=== PATIENT | male | born 1995 | race Caucasian/White ===

== ENCOUNTER 2017-05-14 01:05 | Emergency (ER) | payer SELFPAY ==
[2017-05-14] MEDS ORDERED: NS 0.9% 1000 ML* 1,000 ML IV ONE (01:40)
--- NOTE | 2017-05-14 02:22 | ED ---
Gerald Medellin Thomas, scribed for Fernando White MD on 05/14/17 at 0128 . Syncope/Near Syncope - HPI Summary HPI Summary: The pt is a 22 y/o M presenting to the ED c/o syncopal episodes x2 that began today at 00:15. Prior to the episodes, he was sitting on a stool and he felt woozy and then fell out of the stool. He had LOC for approximately 15 seconds each episode. During a syncopal episode, he reports striking his head. Pt c/o dizziness that is worsened when changing positions. He additionally c/o some SOB , nausea, and vomiting. Pt denies TURNER. He attests to prior syncopal episodes with the last episode occurring a couple months ago. He has never had these episodes evaluated. In the ED, he vomited and feels a lot better.He says that he did not drink any liquids today. PMHx: previously healthy. PSHx: none. SHx: smoking, weekly alcohol use. FHx: negative for syncopal episodes. He is accompanied by a friend. He does not have a PCP. - History Of Current Complaint Chief Complaint: EDSyncope Hx Obtained From: Patient Onset/Duration: Sudden Onset, Lasting Hours - onset today at 00:15, Still Present Timing: Constant Context: Witnessed Associated Head Trauma: Yes Aggravating Factor(s): Nothing Alleviating Factor(s): Nothing Associated Signs And Symptoms: Dizzy - worsened with changing positions, Head Trauma (Recent), Shortness Of Breath, Vomiting, Other - POS: nausea, LOC Related History: Similar Episode/Dx as - prior syncopal episodes - Allergies/Home Medications Allergies/Adverse Reactions: Allergies Allergy/AdvReac Type Severity Reaction Status Date / Time No Known Allergies Allergy Verified 05/14/17 01:17 PMH/Surg Hx/FS Hx/Imm Hx Previously Healthy: Yes Cardiovascular History: Denies: Hx Congestive Heart Failure Respiratory History: Denies: Hx Chronic Obstructive Pulmonary Disease (COPD) - Surgical History Surgery Procedure, Year, and Place: None Infectious Disease History: No Infectious Disease History: Denies: Traveled Outside the [place] in Last 30 Days - Family History Known Family History: Positive: Other - NEG: syncopal episodes - Social History Alcohol Use: Weekly Hx Tobacco Use: Yes Smoking Status (MU): Current Every Day Smoker Review of Systems Negative: Fever Positive: Vomiting, Nausea Positive: Other - POS: striking head during syncopal episode Neurological: Other - POS: dizziness (worsened with changing positions) Positive: Syncope - x2. Negative: Headache All Other Systems Reviewed And Are Negative: Yes Physical Exam Triage Information Reviewed: Yes Vital Signs On Initial Exam: Initial Vitals Temp Pulse Resp BP Pulse Ox 97.8 F 77 16 107/52 97 05/14/17 01:14 05/14/17 01:14 05/14/17 01:14 05/14/17 01:14 05/14/17 01:14 Vital Signs Reviewed: Yes Appearance: Positive: Well-Appearing, No Pain Distress Skin: Positive: Warm Head/Face: Positive: Normal Head/Face Inspection Eyes: Positive: EOMI, JESSY ENT: Positive: Hearing grossly normal Neck: Positive: Supple Respiratory/Lung Sounds: Positive: Clear to Auscultation, Breath Sounds Present Cardiovascular: Positive: RRR Abdomen Description: Positive: Nontender, Soft Bowel Sounds: Positive: Present Musculoskeletal: Positive: Strength/ROM Intact Neurological: Positive: Sensory/Motor Intact, Alert, Oriented to Person Place, Time, Normal Gait Psychiatric: Positive: Affect/Mood Appropriate Diagnostics - Vital Signs Vital Signs Temp Pulse Resp BP Pulse Ox 05/14/17 01:14 97.8 F 77 16 107/52 97 - Laboratory Result Diagrams: 05/14/17 02:17 05/14/17 02:17 Lab Statement: Any lab studies that have been ordered have been reviewed, and results considered in the medical decision making process. - Radiology CXR Xray Interpretation: No Acute Changes - No acute disease Radiology Interpretation Completed By: ED Physician - CT CT Brain CT Interpretation: No Acute Changes - No acute pathology CT Interpretation Completed By: Radiologist - EKG 01:27 Cardiac Rate: NL - 82 BPM Re-Evaluation - Re-Evaluation First Eval Change: Improved - results d/w pt Course/Dx Assessment/Plan: The pt is a 22 y/o M presenting to the ED c/o syncopal episodes x2 that began today at 00:15. Prior to the episodes, he was sitting on a stool and he felt woozy and then fell out of the stool. He had LOC for approximately 15 seconds each episode. During a syncopal episode, he reports striking his head. Pt c/o dizziness that is worsened when changing positions. He additionally c/o some SOB, nausea, and vomiting. Pt denies TURNER. He attests to prior syncopal episodes with the last episode occurring a couple months ago. He has never had these episodes evaluated. In the ED, he vomited and feels a lot better.He says that he did not drink any liquids today. PMHx: previously healthy. PSHx: none. SHx: smoking, weekly alcohol use. FHx: negative for syncopal episodes. He is accompanied by a friend. He does not have a PCP. In the ED course the patient was given IV fluids. Blood work shows Glucose 124, lactic acid 2.4, serum alcohol 51. EKG reveals NSR, nml EKG. CT Brain reveals no acute pathology. ED physician has reviewed this radiology report and agrees. Patient is diagnosed with syncope. Patient will be discharged home with follow up by PCP. Patient is agreeable to this plan. - Diagnoses Provider Diagnoses: Syncope Discharge - Discharge Plan Condition: Stable Disposition: HOME Patient Education Materials: Syncope (ED) [place] [facility] [place]] Additional Instructions: Use [place] [facility] [place] to find a primary care doctor and make and appointment. The documentation as recorded by the Gerald heredia Thomas accurately reflects the service I personally performed and the decisions made by me, Fernando White MD.
[2017-05-14 02:33] LABS: Hematocrit 42 % (42-52); Hemoglobin 14.2 g/dl (14.0-18.0); Mean Corpuscular HGB Conc 34 g/dl (31-36); Mean Corpuscular Hemoglobin 32 pg (27-31); Mean Corpuscular Volume 93 fL (80-94); Mean Platelet Volume 8 um3 (7.4-10.4); Red Blood Count 4.46 10^6/ul (4.0-5.4); Red Cell Distribution Width 14 % (10.5-15); White Blood Count 10.4 10^3/ul (3.5-10.8)
[2017-05-14 02:46] LABS: Albumin 4.6 g/dL (3.2-5.2); BUN/Creatinine Ratio 20.4 (8-20); EGFR African American 102.5 (>60); EGFR Non-African American 79.7 (>60); Globulin 2.2 g/dL (2-4); Magnesium 2.2 mg/dL (1.9-2.7); Total Bilirubin 0.3 mg/dL (0.2-1.0); Total Protein 6.8 g/dL (6.4-8.9)
[2017-05-14 03:09] LABS: TSH (Thyroid Stimulating Horm) 1.19 mcIU/mL (0.34-5.60)
[2017-05-14 04:42] VITALS: BP 107/48
--- NOTE | 2017-05-14 08:21 | RAD ---
INDICATION: Syncopal episodes. Shortness of breath. COMPARISON: No relevant prior exams available on the [facility] [place] for comparison. TECHNIQUE: Dual energy PA and routine lateral views of the chest were obtained. REPORT: Clear lungs and pleural spaces. Negative for pneumothorax. The heart, pulmonary vasculature, and mediastinal contours are unremarkable. Unremarkable osseous structures and soft tissue contours. IMPRESSION: No evidence for acute intrathoracic disease.
--- NOTE | 2017-05-14 08:23 | RAD ---
Indication: Syncopal episodes with fall. Comparison: No relevant prior exams available [place] [facility] [place]. Technique: Noncontrast CT vertex of skull through foramen magnum. Report: The sulci, ventricles, and basal cisterns are normal for age. Contreras matter white matter differentiation is preserved without evidence for edema. No intra or extra axial hemorrhage, mass, or fluid collection detected. Unremarkable visualized orbital contents. Unremarkable calvarium and skull base. Unremarkable scalp. The visualized paranasal sinuses and mastoid air spaces are grossly clear. IMPRESSION: Negative unenhanced head CT.
== END 2017-05-14 03:45 | disposition home or self-care (01) ==
LOC: ED 01:05
DX: R55 Syncope and collapse (principal); S06.9X1A Unspecified intracranial injury with loss of consciousness of 30 minutes or less, initial encounter; W17.89XA Other fall from one level to another, initial encounter; Y92.9 Unspecified place or not applicable; Y93.9 Activity, unspecified; R42 Dizziness and giddiness; R06.02 Shortness of breath; R11.2 Nausea with vomiting, unspecified; F17.210 Nicotine dependence, cigarettes, uncomplicated
CPT/HCPCS: 36415; 70450; 71020; 80053; 80320; 83605; 83735; 84443; 84484; 85025; 85379; 93005; 96360; 99284; G0480